=== PATIENT | female | born 1945 | race African-American/Black ===

== ENCOUNTER 2019-11-20 13:57 | Inpatient (IN) | payer MEDICARE ==
[2019-11-20] MEDS ORDERED: Ondansetron ODT 4 MG TAB ONE (14:25)
[2019-11-20] MEDS ORDERED: Morphine 4 MG/ML VIAL ONE ×2 (14:25→15:22)
--- NOTE | 2019-11-20 16:02 | RAD ---
EXAM: RIGHT HIP TWO VIEWS: 11/20/19 HISTORY: Pain, chronic nerve pain and right groin. FINDINGS: Right hip joint arthrosis. With some joint space loss and some osteophytosis as well as enthesophytic changes involving the greater trochanter. Right sacroiliac joint arthrosis. No fracture or dislocati on. IMPRESSION: Arthrosis and degenerative changes without acute fracture or dislocation. POS: [facility]
[2019-11-20 17:52] LABS: #Eosinphils 0.1 thou/uL (0.0-0.7); #Monocytes 0.9 thou/uL (0.11-0.59); #Neutrophils 5.8 thou/uL (1.40-6.50); %Basophils 0.2 % (0.0-1.0); %Eosinophils 0.6 % (0.0-10.0); %Lymphocytes 22.3 % (21.0-51.0); %Monocytes 10.7 % (0.0-10.0); %Neutrophils 66.2 % (42.0-75.0); Hemoglobin 13.1 g/dL (12.0-16.0); Mean Corpuscular HGB CONC 33.1 g/dL (32.0-36.0); Mean Corpuscular Hemoglobin 30.6 pg (27.0-31.0); Mean Corpuscular Volume 92.4 fL (78.0-98.0); Mean Platelet Volume 7.8 fL (7.4-10.4); Platelet Count 206 thou/uL (130-400); RBC Distribution Width 12.5 % (11.5-14.5); White Blood Cell (WBC) Count 8.7 thou/uL (4.8-10.8)
[2019-11-20 18:08] LABS: ALT (SGPT) 25 U/L (8-55); AST (SGOT) 25 U/L (5-34); Albumin 4.2 g/dL (3.4-4.8); Alkaline Phosphatase 71 U/L (40-110); Anion Gap 13 mmol/L (10-20); BUN (Urea Nitrogen) 18 mg/dL (9.8-20.1); Bilirubin, Total 0.5 mg/dL (0.2-1.2); Calc. Creatinine Clearance 0 mL/min (70-130); Calcium 10.9 mg/dL (7.8-10.44); Carbon Dioxide 23 mmol/L (23-31); Chloride 108 mmol/L (98-107); Estimated GFR-MDRD 45; Globulin 3.5 g/dL (2.4-3.5); Glucose 87 mg/dL (83-110); Potassium 4.6 mmol/L (3.5-5.1); Protein, Total 7.7 g/dL (6.0-8.3); Sodium 139 mmol/L (136-145)
[2019-11-20] MEDS ORDERED: Senokot S 8.6-50 MG TAB PO PRN (18:17)
[2019-11-20] MEDS ORDERED: Calcium Carbonate 500 MG ChewTAB PO PRN (18:17)
[2019-11-20] MEDS ORDERED: Morphine IR 10 MG/5 ML UDCUP PO PRN (18:20)
[2019-11-20] MEDS ORDERED: Promethazine 25 MG TAB PO PRN (18:22)
[2019-11-20 19:19] VITALS: BMI 40.3
--- NOTE | 2019-11-20 19:37 | HP ---
PRIMARY CARE PHYSICIAN: JENSEN Coombs in [place]. CHIEF COMPLAINT: Right sciatic pain. HISTORY OF PRESENT ILLNESS: The patient is a 74-year-old female with past medical history significant for chronic sciatica, hypertension, and acid reflux, who presents to the ER for the above complaint. The patient reports having history of sciatica for the past 8 years. The patient has been seeing a shipyard painter apprentice. Her previous shipyard painter apprentice, Dr. King just recently retired and she was referred to Dr. Frye who works for [facility] in [place]. The patient reports that she saw Dr. Frye 3 months ago, received steroid injections, and everything was doing fine. She went again on November 09 and received injections for her sciatica. Her symptoms were stable for several days post injection and then she reports increasing right sciatic pain. She denies any weakness. She denies any recent trauma or falls. She denies any fever. She denies any urinary retention or incontinence. She denies any saddle anesthesia. Because of her increasing pain, she decided to go stay with her granddaughter here in [place], [place]. Her granddaughter reports that she has become more immobile over the past several days and reporting increasing pain so much so that the patient is refusing to get up and walk. She is able to stand, but is scared to walk because of the pain. She called Dr. Frye, who recommended increasing her dose of gabapentin and hydrocodone, which has not relieved her symptoms. The patient also reports a decreased oral intake, stating that she is not had an appetite for several days. For these reasons, the patient called EMS. In the ER, the patient's vital signs are stable, normal pulse, normal heart rate, normal respiratory rate. Rated her pain 10/10. She was given 8 mg of morphine IV push and 1 L of normal saline and her pain decreased to 5/10 on the pain scale. X-ray of the right hip showed degenerative changes and osteoarthritis. No acute fractures or dislocations. Her CMP and her CBC were unremarkable and a urine is pending. PAST MEDICAL HISTORY: 1. Sciatica, chronic. 2. GERD. 3. Hypertension. SURGICAL HISTORY: 1. Cholecystectomy. 2. Hysterectomy. SOCIAL HISTORY: The patient lives with her family in [place]. Currently, she is staying with her granddaughter in [place]. She has no history of smoking, illicit drug use, or alcohol intake. FAMILY HISTORY: Noncontributory to this case. ALLERGIES: PENICILLIN. HOME MEDICATIONS: 1. Meloxicam 7.5 mg p.o. q.a.m. 2. Gabapentin 1800 mg p.o. b.i.d. 3. Hydrocodone 10/325 two tablets p.o. b.i.d. 4. Promethazine 25 mg p.o. b.i.d. p.r.n. nausea and vomiting. REVIEW OF SYSTEMS: All review of systems are negative unless otherwise stated in the HPI. PHYSICAL EXAMINATION: VITAL SIGNS: Temperature 98.4, blood pressure 133/62, heart rate 61, respirations 18, 97% on room air. Pain scale 5/10. CONSTITUTIONAL stable blood pressure, stable heart rate, no acute distress, alert and oriented to person, place and time. HEAD atraumatic, normocephalic. ENT Nares patent bilaterally, oropharynx clear, uvula midline, moist mucous membranes, no oral lesions NECK Supple, trachea midline, no JVD, no cervical tenderness, Full ROM RESPIRATORY/CHEST Respirations even and unlabored. clear to auscultation. no rhonchi, wheezes or rales. CARDIOVASCULAR S1S2. RRR. no murmurs rubs or gallops ABDOMEN Soft, nontender, active BS, no guarding, rigidity or rebound tenderness. Negative rovsing sign, no abdominal bruit ascultated. BACK no central spinous tenderness. No CVAT tenderness. ROM decreased secondary to pain. UPPER EXTREMITIES Full ROM, strength normal, sensation intact, palpable radial pulses LOWER EXTREMITIES Full ROM, strength normal, sensation intact, palpable pedal pulses, patellar and achilles reflexes intact NEURO Alert, oriented to person, place and time. no focal deficits. HSNE of lumbar spine intact. LABORATORY DATA: X-ray of right hip negative for any acute fracture or dislocation. Sodium 139, potassium 4.6, chloride 108, carbon dioxide 23, BUN 18, creatinine 1.18, glucose 87, calcium 10.9, total bilirubin 0.5, AST 25, ALT 25, alkaline phosphatase 71, albumin 4.2. WBCs 8.7, hemoglobin 13.1, hematocrit 39.7, platelets 206. Urine pending. IMPRESSION AND PLAN: 1. Sciatic pain, chronic. We will admit the patient to the medical floor observation status. Expected length of stay less than 2 midnights. The patient reports a history of chronic sciatica over 8 years. Recently started seeing a new shipyard painter apprentice at [place]. She received steroid injections about a week and a half ago with good relief. Over the next several days, her pain increased. On exam, her vital signs are stable. Regular blood pressure. Regular heart rate and afebrile. X-ray was negative for any acute fracture or dislocation. High sensitivity neuro exam of the lumbar spine is intact. No deficits. She has no risk factors for epidural abscess, epidural hematoma, cauda equina or central canal stenosis. The patient takes gabapentin, hydrocodone, meloxicam for pain, and she had recently increased it per her pain specialist. We will start the patient on oral morphine scheduled and IV morphine p.r.n. We will restart her home dose of promethazine and gabapentin. We will hold her home dose of hydrocodone. We will consult Physical Therapy. We will give IV fluids and await urine pending. 2. Gastroesophageal reflux disease. We will start the patient on Protonix. 3. Hypertension. The patient presented with normal blood pressure. The patient is not taking any medications for blood pressure. We will continue to monitor blood pressure. 4. Heparin for deep venous thrombosis prophylaxis. Protonix for gastrointestinal prophylaxis. The patient is a full code. MPOA is Hermes Hawk, #[phone]. 5. Discussed the case with Dr. Clinton. Job ID: [id number] MTDD
[2019-11-20] MEDS: Morphine 4 MG/ML VIAL SLOW IVP PRN (21:20)
[2019-11-20] MEDS: Gabapentin 300 MG CAP PO SCH (21:21)
[2019-11-20] MEDS: Heparin 5,000 UNITS/ML VIAL SC SCH (21:21)
[2019-11-20] MEDS: Sodium Chloride 0.9% 1,000 ML IV SCH (21:29)
[2019-11-21] MEDS: Morphine 4 MG/ML VIAL SLOW IVP PRN ×3 (03:40→22:50)
[2019-11-21 06:44] LABS: #Eosinphils 0.2 thou/uL (0.0-0.7); #Lymphocytes 2.1 thou/uL (1.20-3.40); #Monocytes 0.9 thou/uL (0.11-0.59); #Neutrophils 3.7 thou/uL (1.40-6.50); %Basophils 0.6 % (0.0-1.0); %Eosinophils 2.2 % (0.0-10.0); %Lymphocytes 30.7 % (21.0-51.0); %Monocytes 12.8 % (0.0-10.0); %Neutrophils 53.7 % (42.0-75.0); Mean Corpuscular Hemoglobin 30.9 pg (27.0-31.0); Mean Corpuscular Volume 93.7 fL (78.0-98.0); Mean Platelet Volume 7.1 fL (7.4-10.4); Platelet Count 172 thou/uL (130-400); RBC Distribution Width 12.5 % (11.5-14.5); Red Blood Cell (RBC) Count 3.88 mill/uL (4.20-5.40); White Blood Cell (WBC) Count 6.9 thou/uL (4.8-10.8)
[2019-11-21 07:00] LABS: Anion Gap 10 mmol/L (10-20); BUN (Urea Nitrogen) 16 mg/dL (9.8-20.1); Calc. Creatinine Clearance 95 mL/min (70-130); Calcium 9.7 mg/dL (7.8-10.44); Carbon Dioxide 25 mmol/L (23-31); Chloride 110 mmol/L (98-107); Estimated GFR-MDRD 68; Glucose 85 mg/dL (83-110); Potassium 3.6 mmol/L (3.5-5.1); Sodium 141 mmol/L (136-145)
[2019-11-21] MEDS ORDERED: Meloxicam 7.5 MG TAB PO SCH (09:00)
[2019-11-21] MEDS: Sodium Chloride 0.9% 1,000 ML IV SCH (09:34)
[2019-11-21] MEDS: Gabapentin 300 MG CAP PO SCH ×2 (09:35→21:48)
[2019-11-21] MEDS: Heparin 5,000 UNITS/ML VIAL SC SCH ×2 (09:35→20:28)
[2019-11-21] MEDS ORDERED: Cyclobenzaprine 10 MG TAB PO SCH (11:30)
[2019-11-21] MEDS: Lidocaine 5% Patch TD SCH (12:00)
[2019-11-21] MEDS ORDERED: tiZANidine HCl 4 MG TAB PO SCH (17:00)
--- NOTE | 2019-11-21 17:00 | PDOC.HOSPP ---
- Subjective Encounter Date: 11/21/19 Encounter Time: 11:40 Subjective: The patient states she got a steroid injection on Sunday in [place] by a pain specialist. She states she gets steroid injections every three months for sciatica. THis time her pain seemed to be worst. The patient reports severe pain in right hip radiating to right leg. She has difficulty lifting up the right leg and difficulty walking because of the pain. It hurts with turning. She reports no relief with oral morphine. She does not want IV morphine due to nausea. She has used lidocaine patch in the past, is willing to try it again She reports taking medrol dose pack 60 mg, then 50 mg, then 40 mg before coming here. Did not notice a difference with that - Objective Vital Signs & Weight: Vital Signs (12 hours) Temp Pulse Resp BP Pulse Ox 11/21/19 11:58 98.3 F 76 18 125/74 100 11/21/19 08:00 98.2 F 74 16 143/83 H 100 Weight Weight 265 lb 6.4 oz I&O: 11/20/19 11/21/19 11/22/19 06:59 06:59 06:59 Intake Total 900 Balance 900 Result Diagrams: 11/21/19 06:21 11/21/19 06:21 Hospitalist ROS - Review of Systems Constitutional: denies: fever, chills - Medication Medications: Active Medications Generic Name Dose Route Start Last Admin Trade Name Freq PRN Reason Stop Dose Admin Gabapentin 1,800 mg 11/20/19 21:00 11/21/19 09:35 Neurontin PO 1,800 mg BID NETO Administration Heparin Sodium (Porcine) 5,000 units 11/20/19 21:00 11/21/19 09:35 Heparin SC 5,000 units BID NETO Administration Lidocaine 1 patch 11/21/19 12:00 11/21/19 12:00 Lidoderm 5% Patch TD 1 patch 1200 NETO Administration Morphine Sulfate 4 mg 11/20/19 18:22 11/21/19 09:35 Morphine SLOW IVP 4 mg Q6H PRN Administration Pain Pantoprazole Sodium 40 mg 11/21/19 09:00 11/21/19 09:35 Protonix PO 40 mg DAILY NETO Administration - Exam General Appearance: NAD, awake alert Eye: PERRL, anicteric sclera ENT: normocephalic atraumatic, no oropharyngeal lesions Neck: supple, symmetric, no JVD Heart: RRR, no murmur, no gallops Respiratory: CTAB, no wheezes, no rales Gastrointestinal: soft, non-tender, non-distended Extremities: no cyanosis, no clubbing, no edema Skin: normal turgor, no lesions, no rashes Neurological: cranial nerve grossly intact, normal sensation to touch, no focal deficits, no new deficit Musculoskeletal - other findings: very tender on right ROSA. Diff lifting right leg due to pain Psychiatric: normal affect, normal behavior, A&O x 3, oriented to person Hosp A/P - Plan This is 74 year old female presenting with worsening sciatica pain Right back and leg pain - possibly worsening sciatica versus herniated disc - patient is very tender on ROSA and has + straight leg test. She had steroid injection five days ago. Obtain MRI spine - continue gabapentin 1800 mg bid - pt reports no significant relief with flexeril. Will try tizanodine - continue lidocaine patch - toradol IV 30 mg q6 hours prn, d/c mobic - oxycodone 2.5 mg po q6 hours prn for severe pain. Switch morphine IV to fentanyl IV prn for severe julian n - MRI lumbar spine ordered, unable to be done today
[2019-11-21] MEDS ORDERED: Fentanyl 100 MCG/2 ML VIAL SLOW IVP PRN (17:02)
[2019-11-21] MEDS: Ketorolac Tromethamine 30 MG/ML VIAL IVP PRN (17:23)
--- NOTE | 2019-11-21 20:37 | PDOC.EVN ---
Event Note - Event Note Event Note: Notified by RN regarding concern over significant increase in Gabapentin at admission. Patient normally takes 600 mg PO TID at home (total dose of 1800 mg/ day). On admission, Gabapentin 1800 mg BID was ordered (3,600 mg/day). Per patient she was told it would be increased. I have changed it to 900 mg TID instead for now. Further adjustments, as per Dr. Velasquez.
[2019-11-21] MEDS ORDERED: Gabapentin 300 MG CAP PO SCH (21:00)
[2019-11-21] MEDS: oxyCODONE 5 MG TAB PO PRN (21:47)
[2019-11-21] MEDS: Lidocaine Patch Removal 1 EACH TOP SCH (23:43)
[2019-11-22 05:38] LABS: Hemoglobin 11.6 g/dL (12.0-16.0); Mean Corpuscular HGB CONC 34.4 g/dL (32.0-36.0); Mean Corpuscular Hemoglobin 31.6 pg (27.0-31.0); Mean Corpuscular Volume 91.9 fL (78.0-98.0); Mean Platelet Volume 7.4 fL (7.4-10.4); Platelet Count 178 thou/uL (130-400); RBC Distribution Width 12.5 % (11.5-14.5); Red Blood Cell (RBC) Count 3.67 mill/uL (4.20-5.40); White Blood Cell (WBC) Count 5.5 thou/uL (4.8-10.8)
[2019-11-22 06:00] LABS: Anion Gap 10 mmol/L (10-20); BUN (Urea Nitrogen) 18 mg/dL (9.8-20.1); Calc. Creatinine Clearance 83 mL/min (70-130); Calcium 9.9 mg/dL (7.8-10.44); Carbon Dioxide 25 mmol/L (23-31); Chloride 110 mmol/L (98-107); Estimated GFR-MDRD 59; Glucose 95 mg/dL (83-110); Potassium 3.7 mmol/L (3.5-5.1); Sodium 141 mmol/L (136-145)
[2019-11-22] MEDS: oxyCODONE 5 MG TAB PO PRN (07:08)
[2019-11-22] MEDS: Gabapentin 300 MG CAP PO SCH ×3 (08:44→20:24)
[2019-11-22] MEDS: Heparin 5,000 UNITS/ML VIAL SC SCH ×2 (08:45→20:27)
[2019-11-22] MEDS: Morphine 4 MG/ML VIAL SLOW IVP PRN (08:46)
[2019-11-22] MEDS: Lidocaine 5% Patch TD SCH (11:43)
--- NOTE | 2019-11-22 11:55 | PDOC.HOSPP ---
- Subjective Encounter Date: 11/22/19 (f/u intractable pain) Encounter Time: 11:53 Subjective: Pt now on HD3, admitted for acute on chronic back and sciatic pain s/p recent steroid injection. Pt c/o pain 8/10 in intensity with laying still, 10/10 with any movement. Unable to lay flat for MRI despite 4 mg morphine, PO oxycodone. Last dose of fentanyl and toradol were last night. She denies any n/v/abd pain. She denies any new symptoms. - Objective Vital Signs & Weight: Vital Signs (12 hours) Temp Pulse Resp BP Pulse Ox 11/22/19 11:40 98.2 F 72 18 127/76 98 11/22/19 07:47 98.2 F 74 18 144/84 H 96 11/22/19 03:00 97.8 F 77 18 130/80 98 Weight Weight 265 lb 6.4 oz I&O: 11/21/19 11/22/19 11/23/19 06:59 06:59 06:59 Intake Total 900 840 Balance 900 840 Result Diagrams: 11/22/19 05:15 11/22/19 05:15 Hospitalist ROS - Medication Medications: Active Medications Generic Name Dose Route Start Last Admin Trade Name Freq PRN Reason Stop Dose Admin Gabapentin 900 mg 11/21/19 21:00 11/22/19 08:44 Neurontin PO 900 mg TID [facility] Administration Heparin Sodium (Porcine) 5,000 units 11/20/19 21:00 11/22/19 08:45 Heparin SC 5,000 units BID NETO Administration Ketorolac Tromethamine 30 mg 11/21/19 16:56 11/21/19 17:23 Toradol IVP 11/26/19 16:57 30 mg Q6H PRN Administration Pain Lidocaine 1 patch 11/21/19 12:00 11/22/19 11:43 Lidoderm 5% Patch TD 1 patch 1200 [facility] Administration Miscellaneous Medication 1 each 11/21/19 23:59 11/21/19 23:43 Lidocaine Patch Removal TOP Not Given 1569 [facility] Morphine Sulfate 4 mg 11/20/19 18:22 11/22/19 08:46 Morphine SLOW IVP 4 mg Q6H PRN Administration Pain Oxycodone HCl 2.5 mg 11/21/19 16:57 11/22/19 07:08 Oxycodone Ir PO 2.5 mg Q6H PRN Administration Severe Pain (7-10) Pantoprazole Sodium 40 mg 11/21/19 09:00 11/22/19 08:45 Protonix PO 40 mg DAILY NETO Administration - Exam General Appearance: NAD Heart: RRR, no murmur Respiratory: CTAB, no wheezes, no rales, no ronchi Gastrointestinal: soft, non-tender, non-distended, normal bowel sounds Extremities: no cyanosis, no clubbing, no edema Neurological: no focal deficits Musculoskeletal: normal tone Musculoskeletal - other findings: normal strength with plantar flexion/extension Psychiatric: normal affect Hosp A/P (1) Sciatic leg pain Code(s): M54.30 - SCIATICA, UNSPECIFIED SIDE Status: Acute (2) Back pain Code(s): M54.9 - DORSALGIA, UNSPECIFIED Status: Acute Qualifiers: Back pain laterality: right Sciatica presence: with sciatica Sciatica laterality: sciatica of right side (3) Hypertension Code(s): I10 - ESSENTIAL (PRIMARY) HYPERTENSION Status: Chronic (4) GERD (gastroesophageal reflux disease) Code(s): K21.9 - GASTRO-ESOPHAGEAL REFLUX DISEASE WITHOUT ESOPHAGITIS Status: Chronic - Plan Acute on chronic back and sciatic back pain - uncontrolled despite multiple medications - discussed safely managing pain - avoiding multiple medications that can cause sedation - goal of MRI to determine if pain mgmt consult or NS consult needed - For MRI - fentanyl and toradol - for pain in general - scheduled lidocaine patch, gabapentin. PRN options - robaxin, fentanyl, morphine, oxycodone, toradol Continue monitoring renal function scheduled and prn bowel meds hold home med of aspirin in case surgery/procedure is needed HTN - bp's normal, hold home med dvt prophy - heparin gi prophy - protonix as she is receiving nsaid's code status full reviewed plan of care with pt/nurse, no questions or further needs at end of eval. pt is not safe for discharge to home - pain is not controlled, and underlying pathology causing pain has not been characterized.
[2019-11-22] MEDS: Methocarbamol 500 MG TAB PO PRN (12:56)
[2019-11-22] MEDS: Ketorolac Tromethamine 30 MG/ML VIAL IVP PRN ×2 (15:43→21:59)
[2019-11-22] MEDS: Fentanyl 100 MCG/2 ML VIAL SLOW IVP PRN ×2 (15:44→21:47)
[2019-11-22] MEDS: Docusate 100 MG CAP PO SCH (20:24)
[2019-11-23] MEDS: Fentanyl 100 MCG/2 ML VIAL SLOW IVP PRN ×3 (07:29→20:23)
[2019-11-23] MEDS: Gabapentin 300 MG CAP PO SCH ×3 (09:32→23:01)
[2019-11-23] MEDS: Heparin 5,000 UNITS/ML VIAL SC SCH ×2 (09:32→20:13)
[2019-11-23] MEDS: Docusate 100 MG CAP PO SCH ×2 (09:32→20:13)
[2019-11-23] MEDS: Ketorolac Tromethamine 30 MG/ML VIAL IVP PRN ×2 (09:43→20:25)
[2019-11-23] MEDS: Polyethylene Glycol 3350 17 GM Packet PO SCH (10:00)
[2019-11-23] MEDS: Morphine 4 MG/ML VIAL SLOW IVP PRN (10:54)
[2019-11-23] MEDS: Methocarbamol 500 MG TAB PO PRN (12:01)
[2019-11-23] MEDS: Lidocaine 5% Patch TD SCH (12:05)
--- NOTE | 2019-11-23 12:22 | MRI ---
MRI LUMBAR SPINE WITHOUT CONTRAST: INDICATIONS: Low back pain and sciatica on the right. FINDINGS: The exam is compromised due to motion artifact. The lumbar vertebrae maintain height. Moderate degenerative changes are noted with spurring from all the lumbar vertebrae. Degenerative disk changes are seen throughout. Disk narrowing is most pronounce d at the L3-L4 and L5-S1 levels. No evidence of vertebral body edema. High STIR signal is seen along the posterior margin of the L2 vertebra on the right, extending into the pedicle, most consistent wit h hemangioma. Findings at each disk level are described. There is mild anterolisthesis at L4 L5 and minimal sylvia listhesis at L3-L4. At L1-L2 there is a broad-based disk bulge. Prominent posterior facet and ligamentous hypertrophy is present. These changes result in moderate central canal stenosis. Bilateral foraminal stenosis. At L2-L3 there is a broad-based disk bulge. Prominent facet hypertrophy. Mild central canal stenosis. Bilateral foraminal stenosis. At L3-L4 there is diffuse disk bulge. Prominent facet and ligamentous hypertrophy. Moderate central c anal stenosis. Bilateral foraminal stenosis. At L4-L5 there is anterolisthesis, broad-based disk bulge, facet hypertrophy. Moderate central canal stenosis. Bilateral foraminal stenosis. At L5-S1 there is mild diffuse disk bulge. Facet hypertrophy. No significant central canal stenosis. Mild bilateral foraminal stenosis. IMPRESSION: Degenerative disk changes at all levels with degrees of central canal stenosis, as described above. F oraminal stenosis noted at all levels. POS: [facility]
--- NOTE | 2019-11-23 13:13 | PDOC.HOSPP ---
- Subjective Encounter Date: 11/23/19 (f/u intractable back pain) Encounter Time: 13:10 Subjective: Pt reports she felt good this morning - pain was down to 4/10. Able to use bedside commode and transfer, however had return of severe pain afterwards. - Objective Vital Signs & Weight: Vital Signs (12 hours) Temp Pulse Resp BP Pulse Ox 11/23/19 08:00 94 L 11/23/19 07:24 98.2 F 73 16 141/85 H 94 L 11/23/19 04:00 98.2 F 73 22 H 124/76 96 Weight Weight 265 lb 6.4 oz I&O: 11/22/19 11/23/19 11/24/19 06:59 06:59 06:59 Intake Total 840 Balance 840 Result Diagrams: 11/22/19 05:15 11/22/19 05:15 Radiology Reviewed by me: Yes (MRI l-spine with multiple abnormalities) Hospitalist ROS - Medication Medications: Active Medications Generic Name Dose Route Start Last Admin Trade Name Freq PRN Reason Stop Dose Admin Docusate Sodium 100 mg 11/22/19 21:00 11/23/19 09:32 Colace PO 100 mg BID NETO Administration Fentanyl 50 mcg 11/22/19 11:53 11/23/19 09:37 Sublimaze SLOW IVP 50 mcg Q2H PRN Administration Severe Pain (7-10) Gabapentin 900 mg 11/21/19 21:00 11/23/19 09:32 Neurontin PO 900 mg TID NETO Administration Heparin Sodium (Porcine) 5,000 units 11/20/19 21:00 11/23/19 09:32 Heparin SC 5,000 units BID NETO Administration Ketorolac Tromethamine 30 mg 11/21/19 16:56 11/23/19 09:43 Toradol IVP 11/26/19 16:57 30 mg Q6H PRN Administration Pain Lidocaine 1 patch 11/21/19 12:00 11/23/19 12:05 Lidoderm 5% Patch TD 1 patch 1200 NETO Administration Metoprolol Succinate 50 mg 11/22/19 21:00 11/22/19 20:25 Toprol Xl PO Not Given HS NETO Miscellaneous Medication 1 each 11/21/19 23:59 11/23/19 00:00 Lidocaine Patch Removal TOP 1 each 2359 NETO Administration Morphine Sulfate 4 mg 11/20/19 18:22 11/23/19 10:54 Morphine SLOW IVP 4 mg Q6H PRN Administration Pain Oxycodone HCl 2.5 mg 11/21/19 16:57 11/22/19 07:08 Oxycodone Ir PO 2.5 mg Q6H PRN Administration Severe Pain (7-10) Pantoprazole Sodium 40 mg 11/21/19 09:00 11/23/19 09:32 Protonix PO 40 mg DAILY NETO Administration - Exam General Appearance: NAD Heart: RRR, no murmur Respiratory: CTAB, no wheezes, no rales, no ronchi Gastrointestinal: soft, non-tender, non-distended, normal bowel sounds Neurological: no focal deficits Psychiatric: normal affect Hosp A/P (1) Sciatic leg pain Code(s): M54.30 - SCIATICA, UNSPECIFIED SIDE Status: Acute (2) Back pain Code(s): M54.9 - DORSALGIA, UNSPECIFIED Status: Acute Qualifiers: Back pain laterality: right Sciatica presence: with sciatica Sciatica laterality: sciatica of right side (3) Hypertension Code(s): I10 - ESSENTIAL (PRIMARY) HYPERTENSION Status: Chronic (4) GERD (gastroesophageal reflux disease) Code(s): K21.9 - GASTRO-ESOPHAGEAL REFLUX DISEASE WITHOUT ESOPHAGITIS Status: Chronic - Plan Acute on chronic back and sciatic back pain - multiple abnormalities on MRI including stenosis, disk bulging - consult to Neurosurgery - continue managing pain - change robaxin to scheduled - for pain in general - scheduled lidocaine patch, gabapentin and now robaxin. PRN options - fentanyl, morphine, oxycodone, toradol scheduled and prn bowel meds hold home med of aspirin in case surgery/procedure is needed HTN - bp's normal, hold home med dvt prophy - heparin gi prophy - protonix as she is receiving nsaid's code status full reviewed plan of care with pt/nurse, no questions or further needs at end of eval. pt is not safe for discharge to home given the severity of pain and the need for consultation on options for treatment.
[2019-11-23] MEDS ORDERED: Methocarbamol 500 MG TAB PO SCH (15:00)
[2019-11-23] MEDS: Methocarbamol 500 MG TAB PO SCH (23:02)
[2019-11-23] MEDS: Lidocaine Patch Removal 1 EACH TOP SCH ×2 (23:30)
--- NOTE | 2019-11-24 07:32 | CON ---
DATE OF CONSULTATION: 11/23/2019 HISTORY OF PRESENT ILLNESS: Ms. Mohan is a 74-year-old female with a chief complaint of lower back pain for the past 6 years. She states that she lives in [place] and she came up to visit her granddaughter who goes to school at [employer] . She was visiting her to order a ring and developed severe back pain. States that she had an LTFESI last Sunday. She received her steroid injection from [facility]. Before Sunday, she was walking and driving and everything was great. Now, she tells me she cannot even move to the commode, she is in so much pain. States that her pain is being managed very well. It is about 4/10. The MRI of her L-spine showed moderate canal stenosis, especially at L3-L4. She tells me that her right quadriceps is the only thing that hurts in her lower extremity. PAST SURGICAL HISTORY: Cholecystectomy, hysterectomy. SOCIAL HISTORY: She denies smoking, illicit drug use, or alcohol. FAMILY HISTORY: Noncontributory. ALLERGIES: PENICILLIN. MEDICATIONS: Meloxicam, gabapentin, hydrocodone, promethazine. REVIEW OF SYSTEMS: CONSTITUTIONAL: Denies fever or chills. ENT: Denies change in vision or hearing. CARDIAC: Denies chest pain, shortness of breath, or diaphoresis. PULMONARY: Denies shortness of breath, cough, or hemoptysis. GI: Denies abdominal pain, nausea, vomiting, diarrhea, or change in stool formation and consistency. : Denies trouble with urination, frequency of urination, or bloody urine. SKIN: Denies skin rash, bruising, bleeding, or skin masses. MUSCULOSKELETAL: As per history of present illness. NEUROLOGICAL: As per history of present illness. PSYCHOLOGICAL: As per history of present illness. PHYSICAL EXAMINATION: HEENT: Pupils are equal. Extraocular movements are intact. NECK: Soft, supple. No masses are noted. Range of motion is intact and nonpainful. NEUROLOGICAL: Awake, alert, oriented x3. Memory, attention, fund of knowledge normal. Cranial nerves grossly intact. Upper extremity 5/5 strength in the deltoids, biceps, triceps, wrist extensions, finger extension, finger intrinsics. Sensation equal bilaterally. Reflexes symmetric. Lower extremity; somewhat weaker in her right quadriceps, otherwise, she has good strength in her iliopsoas, hamstrings, anterior tib, EHL, and gastrocnemius. There is no area of dermatomal sensory loss. The reflexes are symmetric. The toes are downgoing. IMAGING STUDIES: MRI of the L-spine, L2-L3, L3-L4, L4-L5, moderate canal stenosis, greatest stenosis at L3-L4. PLAN: I asked Ms. Mohan if she would consider surgery (Laminectomy). At this time and she said would like some time to think about it. We could offer her Pain Management. I will visit her tomorrow to see what her plan is. Job ID: [id number] [facility] HOSPITALCharissa
[2019-11-24] MEDS: Docusate 100 MG CAP PO SCH ×2 (09:05→20:32)
[2019-11-24] MEDS: Gabapentin 300 MG CAP PO SCH ×3 (09:06→20:32)
[2019-11-24] MEDS: Heparin 5,000 UNITS/ML VIAL SC SCH ×2 (09:06→20:33)
[2019-11-24] MEDS: Methocarbamol 500 MG TAB PO SCH ×3 (09:07→20:33)
[2019-11-24] MEDS: Polyethylene Glycol 3350 17 GM Packet PO SCH (09:07)
[2019-11-24] MEDS: Lidocaine 5% Patch TD SCH (12:02)
[2019-11-24] MEDS: Ketorolac Tromethamine 30 MG/ML VIAL IVP PRN (12:08)
[2019-11-24] MEDS ORDERED: Amlodipine 5 MG TAB PO SCH (12:45)
[2019-11-24] MEDS: Fentanyl 100 MCG/2 ML VIAL SLOW IVP PRN ×2 (13:02→18:04)
--- NOTE | 2019-11-24 15:21 | PDOC.HOSPP ---
- Subjective Encounter Date: 11/24/19 (f/u intractable back pain) Encounter Time: 15:18 Subjective: Pt evaluated today and she reports pain is better - she was able to ambulate to restroom, and sit up in a chair. She has increasing pain now. She denies any n /v/abd pain, and denies any other concerns. - Objective Vital Signs & Weight: Vital Signs (12 hours) Temp Pulse Resp BP BP BP Pulse Ox 11/24/19 13:04 72 11/24/19 11:23 98.3 F 72 16 152/93 H 92 L 11/24/19 08:00 95 11/24/19 06:58 98.1 F 72 16 137/90 95 11/24/19 04:47 97.7 F 64 17 141/89 H 97 Weight Weight 265 lb 6.4 oz Result Diagrams: 11/22/19 05:15 11/22/19 05:15 Hospitalist ROS - Medication Medications: Active Medications Generic Name Dose Route Start Last Admin Trade Name Freq PRN Reason Stop Dose Admin Docusate Sodium 100 mg 11/22/19 21:00 11/24/19 09:05 Colace PO 100 mg BID NETO Administration Fentanyl 50 mcg 11/22/19 11:53 11/24/19 13:02 Sublimaze SLOW IVP 50 mcg Q2H PRN Administration Severe Pain (7-10) Gabapentin 900 mg 11/21/19 21:00 11/24/19 14:53 Neurontin PO 900 mg TID NETO Administration Heparin Sodium (Porcine) 5,000 units 11/20/19 21:00 11/24/19 09:06 Heparin SC 5,000 units BID NETO Administration Ketorolac Tromethamine 30 mg 11/21/19 16:56 11/24/19 12:08 Toradol IVP 11/26/19 16:57 30 mg Q6H PRN Administration Pain Lidocaine 1 patch 11/21/19 12:00 11/24/19 12:02 Lidoderm 5% Patch TD 1 patch 1200 NETO Administration Methocarbamol 750 mg 11/23/19 21:00 11/24/19 14:54 Robaxin PO 750 mg TID NETO Administration Metoprolol Succinate 50 mg 11/22/19 21:00 11/23/19 20:14 Toprol Xl PO 50 mg HS NETO Administration Miscellaneous Medication 1 each 11/21/19 23:59 11/23/19 23:30 Lidocaine Patch Removal TOP 1 each 9552 NETO Administration Morphine Sulfate 4 mg 11/20/19 18:22 11/23/19 10:54 Morphine SLOW IVP 4 mg Q6H PRN Administration Pain Oxycodone HCl 2.5 mg 11/21/19 16:57 11/22/19 07:08 Oxycodone Ir PO 2.5 mg Q6H PRN Administration Severe Pain (7-10) Polyethylene Glycol 17 gm 11/23/19 09:00 11/24/19 09:07 Miralax PO 17 gm DAILY NETO Administration - Exam General Appearance: NAD Heart: RRR, no murmur Respiratory: CTAB, no wheezes, no rales, no ronchi Gastrointestinal: soft, non-tender, non-distended, normal bowel sounds Extremities: no cyanosis, no clubbing, no edema Psychiatric: normal affect Hosp A/P (1) Sciatic leg pain Code(s): M54.30 - SCIATICA, UNSPECIFIED SIDE Status: Acute (2) Back pain Code(s): M54.9 - DORSALGIA, UNSPECIFIED Status: Acute Qualifiers: Back pain laterality: right Sciatica presence: with sciatica Sciatica laterality: sciatica of right side (3) Hypertension Code(s): I10 - ESSENTIAL (PRIMARY) HYPERTENSION Status: Chronic (4) GERD (gastroesophageal reflux disease) Code(s): K21.9 - GASTRO-ESOPHAGEAL REFLUX DISEASE WITHOUT ESOPHAGITIS Status: Chronic - Plan Acute on chronic back and sciatic back pain - appreciate NS evaluation - by report of patient, Dr. White to meet wiht her today. Pt is not interested in surgery, however she has worsening pain despite recent outpatient injection. If there are no surgical options, or she declines, will requiest consult of Pain medicine. - continue pt - consider IP rehab continue scheduled and prn bowel meds hold home med of aspirin in case surgery/procedure is needed HTN - bp's slightly elevated. we are using nsaid's, will change to amlodipine for now and continue her beta-denise. When no longer on NSAID's, return back to home combo ARB/HCTZ. dvt prophy - heparin gi prophy - not indicated - taking PO code status full reviewed plan of care with pt/nurse, no questions or further needs at end of eval. pt is not safe for discharge to home given the severity of pain and the need for further discussion with specialist. Addendum - d/w Dr. White this afternoon - he reports that if surgery is desired, it will not be during this hospitalization. Pt will need physical therapy, pain management and follow up in a Neurosurgery clinic for discussion and planning of surgery. Consult placed this evening for Pain managment. Will also consult OT for evaluation, and consider SNF vs IP rehab.
[2019-11-25] MEDS: Ketorolac Tromethamine 30 MG/ML VIAL IVP PRN ×2 (00:23→08:19)
[2019-11-25] MEDS: Fentanyl 100 MCG/2 ML VIAL SLOW IVP PRN ×2 (00:24→11:07)
[2019-11-25] MEDS: Lidocaine Patch Removal 1 EACH TOP SCH ×2 (01:07→22:50)
[2019-11-25 06:14] LABS: Anion Gap 11 mmol/L (10-20); BUN (Urea Nitrogen) 20 mg/dL (9.8-20.1); Calc. Creatinine Clearance 79 mL/min (70-130); Calcium 10.5 mg/dL (7.8-10.44); Carbon Dioxide 22 mmol/L (23-31); Chloride 110 mmol/L (98-107); Estimated GFR-MDRD 56; Glucose 98 mg/dL (83-110); Potassium 3.9 mmol/L (3.5-5.1); Sodium 139 mmol/L (136-145)
[2019-11-25] MEDS: Docusate 100 MG CAP PO SCH ×2 (08:16→20:23)
[2019-11-25] MEDS: Gabapentin 300 MG CAP PO SCH ×3 (08:16→20:23)
[2019-11-25] MEDS: Methocarbamol 500 MG TAB PO SCH ×3 (08:17→20:23)
[2019-11-25] MEDS: Amlodipine 5 MG TAB PO SCH (08:17)
[2019-11-25] MEDS: Heparin 5,000 UNITS/ML VIAL SC SCH (08:18)
[2019-11-25] MEDS: Polyethylene Glycol 3350 17 GM Packet PO SCH (08:20)
[2019-11-25] MEDS ORDERED: HYDROcodone/Acetaminophen 10/325 mg Tablet PO PRN ×2 (10:55→12:26)
[2019-11-25] MEDS ORDERED: traMADol HCl 50 MG TAB PO PRN (10:57)
--- NOTE | 2019-11-25 11:18 | PDOC.HOSPP ---
- Subjective Encounter Date: 11/25/19 (f/u intractable pain) Encounter Time: 11:15 Subjective: 74 y/o female admitted for intractable back pain. Pt with abnormal MRI - multiple abnormalities through lumbar spine. She was evaluated by Neurosurgery and any surgical options will need evaluation in the outpatient setting. Pt is frustrated today - states she feels like she shouldnt have pain. She has been moving more with PT, taking a shower, using the restroom. She denies any cp /sob/n/v/abd pain. - Objective Vital Signs & Weight: Vital Signs (12 hours) Temp Pulse Resp BP BP Pulse Ox 11/25/19 08:17 73 133/88 11/25/19 07:02 98.2 F 73 16 133/88 98 11/25/19 03:39 98.5 F 72 20 143/84 H 98 11/25/19 01:00 98.5 F 70 20 149/84 H 96 Weight Weight 265 lb 6.4 oz I&O: 11/24/19 11/25/19 11/26/19 06:59 06:59 06:59 Intake Total 880 Balance 880 Result Diagrams: 11/25/19 13:10 11/25/19 05:39 Hospitalist ROS - Medication Medications: Active Medications Generic Name Dose Route Start Last Admin Trade Name Freq PRN Reason Stop Dose Admin Amlodipine Besylate 2.5 mg 11/25/19 09:00 11/25/19 08:17 Norvasc PO 2.5 mg DAILY NETO Administration Docusate Sodium 100 mg 11/22/19 21:00 11/25/19 08:16 Colace PO 100 mg BID NETO Administration Fentanyl 50 mcg 11/22/19 11:53 11/25/19 11:07 Sublimaze SLOW IVP 50 mcg Q2H PRN Administration Severe Pain (7-10) Gabapentin 900 mg 11/21/19 21:00 11/25/19 08:16 Neurontin PO 900 mg TID NETO Administration Heparin Sodium (Porcine) 5,000 units 11/20/19 21:00 11/25/19 08:18 Heparin SC 5,000 units BID NETO Administration Lidocaine 1 patch 11/21/19 12:00 11/24/19 12:02 Lidoderm 5% Patch TD 1 patch 1200 NETO Administration Methocarbamol 750 mg 11/23/19 21:00 11/25/19 08:17 Robaxin PO 750 mg TID NETO Administration Metoprolol Succinate 50 mg 11/22/19 21:00 11/24/19 20:33 Toprol Xl PO 50 mg HS NETO Administration Miscellaneous Medication 1 each 11/21/19 23:59 11/25/19 01:07 Lidocaine Patch Removal TOP 1 each 2359 NETO Administration Morphine Sulfate 4 mg 11/20/19 18:22 11/23/19 10:54 Morphine SLOW IVP 4 mg Q6H PRN Administration Pain Topiramate 200 Mg 0 each 11/21/19 21:00 11/24/19 20:30 Tab PO 1 each HS NETO Administration Polyethylene Glycol 17 gm 11/23/19 09:00 11/25/19 08:20 Miralax PO 17 gm DAILY NETO Administration - Exam General Appearance: NAD Heart: RRR, no murmur Respiratory: CTAB, no wheezes, no rales, no ronchi Gastrointestinal: soft, non-tender, non-distended, normal bowel sounds Extremities: no cyanosis, no clubbing, no edema Psychiatric - other findings: affect blunted Hosp A/P (1) Sciatic leg pain Code(s): M54.30 - SCIATICA, UNSPECIFIED SIDE Status: Acute (2) Back pain Code(s): M54.9 - DORSALGIA, UNSPECIFIED Status: Acute Qualifiers: Back pain laterality: right Sciatica presence: with sciatica Sciatica laterality: sciatica of right side (3) Hypertension Code(s): I10 - ESSENTIAL (PRIMARY) HYPERTENSION Status: Chronic Qualifiers: Hypertension type: essential hypertension Qualified Code(s): I10 - Essential (primary) hypertension (4) GERD (gastroesophageal reflux disease) Code(s): K21.9 - GASTRO-ESOPHAGEAL REFLUX DISEASE WITHOUT ESOPHAGITIS Status: Resolved - Plan Acute on chronic back and sciatic back pain - - Pain management consult today - Add more options for oral tx - scheduled and prn - pt ready for IP rehab vs SNF when no longer requiring IV pain meds - will need outpt f/u with Neurosurgery to explore surgical options in the future continue scheduled and prn bowel meds resume home low dose aspirin HTN - bp's controlled. Will plan to switch back to home med on discharge as renal function has been stable dvt prophy - heparin gi prophy - not indicated - taking PO code status full reviewed plan of care with pt/nurse, no questions or further needs at end of eval. Anticipate ready for transition of care in the next 1-2 days. Addendum - d/w Dr. Bar - he is narrowing the medications, ordering a dose of IV steroids and will re-evaluate tomorrow. HE recommends scd's for dvt prophy.
[2019-11-25] MEDS ORDERED: methylPREDNISolone Sod Succ/PF 125 MG/2 ML VIAL IVP SCH (12:30)
[2019-11-25] MEDS: Lidocaine 5% Patch TD SCH (13:18)
[2019-11-25 13:20] LABS: #Eosinphils 0.2 thou/uL (0.0-0.7); #Lymphocytes 1.3 thou/uL (1.20-3.40); #Monocytes 0.6 thou/uL (0.11-0.59); #Neutrophils 2.7 thou/uL (1.40-6.50); %Lymphocytes 27.4 % (21.0-51.0); %Monocytes 11.7 % (0.0-10.0); Hemoglobin 12.8 g/dL (12.0-16.0); Mean Corpuscular HGB CONC 33.1 g/dL (32.0-36.0); Mean Corpuscular Hemoglobin 30.6 pg (27.0-31.0); Mean Corpuscular Volume 92.4 fL (78.0-98.0); Mean Platelet Volume 7.6 fL (7.4-10.4); Platelet Count 198 thou/uL (130-400); RBC Distribution Width 12.7 % (11.5-14.5); Red Blood Cell (RBC) Count 4.19 mill/uL (4.20-5.40); White Blood Cell (WBC) Count 4.9 thou/uL (4.8-10.8)
[2019-11-25] MEDS: HYDROcodone/Acetaminophen 10/325 mg Tablet PO PRN (13:21)
--- NOTE | 2019-11-25 14:52 | CON ---
DATE OF CONSULTATION: 11/25/2019 REASON FOR CONSULTATION: Right lower extremity pain. HISTORY OF PRESENT ILLNESS: The patient is a 74-year-old female, who presented on 11/20/2019 with severe lower back pain radiating to the right lower extremity. She states that she has had this right lower extremity pain for years and was being treated by a paint dipper in [place]. She states that her regular paint dipper, Dr. King, retired in April of 2019 and was referred to Dr. Frye, who works for [facility] in [place]. Dr. Frye performed an epidural steroid injection approximately 3 months ago, which led to significant relief. Her pain then returned and she was scheduled for a repeat epidural steroid injection on 11/11/2019. From what the patient describes, the bandage was in the center of the spine at the lumbar area. Therefore, I assume an interlaminar epidural steroid injection was performed. The patient does say that she was under anesthesia for the injection and does say that the injection was performed for her right lower extremity radiculitis. This is in a right L3 distribution. Therefore, I believe Dr. Frye probably performed a right L2-L3 interlaminar epidural steroid injection to target the L3 nerve root in the lateral recess. I do not have exact records for this though. She says her symptoms are stable for several days and then she had an increase in the right-sided lower extremity pain. This became severe around 11/20/2019. She was visiting her granddaughter in [place] and was taken to our ER and subsequently admitted. The patient currently says that her pain has gotten slightly better. She can now get up out of bed and use the bedside commode. But, after standing for a very short period of time, she has increased right lower extremity pain and she has to lay back down. The pain is described as burning and numb. The patient describes the pain as going up to 10/10 at times. The pain radiates from the right hip to the medial thigh and down to the knee. Her home medication regimen includes [place] 10/325 one p.o. b.i.d. p.r.n. pain. She had to increase this recently due to the increase in pain. She had called her pain doctor before she came in and she was prescribed a Medrol Dosepak and she only finished two days worth of this. She says her pain did decrease, however, continues to be problematic. PAST SURGICAL HISTORY: Cholecystectomy and hysterectomy. SOCIAL HISTORY: Denies smoking, illicit drug use, or alcohol use. She does live at home. FAMILY HISTORY: Noncontributory. ALLERGIES: PENICILLIN. MEDICATIONS: Home medications include; 1. Meloxicam. 2. Gabapentin. 3. Hydrocodone 10/325 one p.o. b.i.d. p.r.n. pain. 4. Promethazine. REVIEW OF SYSTEMS: GENERAL: Denies fever, chills, or night sweats. HEENT: Denies changes in vision, hearing, or nasal discharge. CARDIAC: Denies chest pain, shortness of breath, or diaphoresis. PULMONARY: Denies shortness of breath, cough, or hemoptysis. GI: Denies abdominal pain, nausea, vomiting, diarrhea, or constipation. : Denies trouble with urination, frequency, or blood in urine. SKIN: No rashes. MUSCULOSKELETAL: As in HPI. NEUROLOGIC: Does admit some weakness in the right lower extremity. Denies seizures, headache, or loss of consciousness. PSYCH: Denies anxiety, depression, or kasey. PHYSICAL EXAMINATION: VITAL SIGNS: This morning were a temperature of 98.2, blood pressure 133/88, pulse is 73, O2 saturation 98 on room air. These vital signs have been fairly consistent since her stay. HEENT: Pupils are equally round and reactive to light and accommodation. NECK: Soft, supple. No masses. Range of motion intact. CHEST: Symmetric, nonlabored respirations. ABDOMEN: Soft, nontender, nondistended. MUSCULOSKELETAL: 5/5 strength in bilateral upper extremities, 5/5 strength in bilateral lower extremities except for 4/5 strength in the right hip flexor. Reflexes are 2+ in the bilateral patella and bilateral Achilles. There is tenderness to palpation in the right lower back. Pain with extension and pain with flexion of the lower back. NEUROLOGIC: Sensation is intact. Reflexes as mentioned above. LABORATORY DATA: There have been three CBCs since she was admitted on 11/20/2019. Last one was done on 11/22/2019, white count was normal, borderline anemia with hemoglobin of 11.62 three days ago, platelet count was adequate at 178. Chemistries, most recent sodium 139, potassium 3.9, chloride 110, carbon dioxide 22, BUN 20, creatinine 1.15, calcium level 10.5. Liver enzymes were good on day of admission. MRI of the L-spine performed on 11/23/2019, reveals multilevel degenerative disk disease. There is moderate canal stenosis at multiple levels including L1-L2, L3-L4 where it worst, and bilateral lateral recess stenosis at L4-L5. Neuroforaminal stenosis bilaterally at L2-L3 and severe on the right at L3-L4. There is a hyperintensity in the STIR images at the vertebral body of L2, which extends into the right L2 pedicle. There is noted in the axial T2 images at L2-L3 in the lateral recess, which was seen in image 19 of 47, there is a small hyperintensity in the lateral recess, which may signify epidural fat or fluid. X-ray of the hip on the right side, arthrosis and degenerative changes, no dislocation or fracture. ASSESSMENT: Lumbar radiculopathy. The patient has had a right L3 radiculopathy, which is chronic in nature; however, she has had a severe exacerbation of this. This was done after her most recent epidural steroid injection. The patient did have this epidural steroid injection performed while she was asleep, which puts the patient at increased risk for possible nerve root irritation as the patient cannot tell you if there is pain with a transient increase of pressure in the epidural space from the fluid that is pushed in with the steroids. Therefore, this may have caused an agitation or irritation of her chronic pain. However, given that the Pain Management physician went at L2-L3 at the right lateral recess and there happens to be what looks like an increase in the hypersensitivity of the STIR images at L2-L3 vertebral body and pedicle, I am concerned for a possible infectious process. This is most likely a hemangioma; however, given the location of the epidural steroid injection, I believe it will be prudent to get a CRP and ESR to rule out osteomyelitis. Therefore, I will order a CRP and ESR. I will also order a new CBC. Once this is ruled down, I believe it is safe to say that this is a severe exacerbation of her chronic pain. I will add Solu-Medrol 80 mg IV x1 and re-evaluate the patient tomorrow to see if this helps with her pain. If it helps, we may be able to handle this as an outpatient. We will [place] [id number] one p.o. q.6 hours p.r.n. pain. Discontinue the fentanyl. Continue morphine 4 mg IV q.6 hours p.r.n. severe pain. Continue gabapentin and muscle relaxers and discontinue her tramadol. For deep venous thrombosis prophylaxis, I suggest SCDs and up out of bed to chair. Also, we would recommend evaluation from PT and OT. We will continue to monitor. Job ID: [id number]
[2019-11-25] MEDS: Morphine 4 MG/ML VIAL SLOW IVP PRN (16:06)
[2019-11-25] MEDS: Aspirin 81 mg Enteric Coated Tablet PO SCH (20:20)
[2019-11-25] MEDS: Meloxicam 7.5 MG TAB PO SCH (20:23)
[2019-11-26] MEDS: Morphine 4 MG/ML VIAL SLOW IVP PRN ×3 (00:05→19:54)
--- NOTE | 2019-11-26 08:59 | PDOC.HOSPP ---
- Subjective Encounter Date: 11/26/19 (f/u intractable pain) Encounter Time: 08:57 Subjective: 74 y/o female admitted for acute on chronic back and leg pain. Pt with multiple abnormalities on MRI. Neurosurgery eval - no indication for surgery now - needs outpatient f/u. Pain management consult - steroids initiated yesterday. Pt reports feeling better today, moving better. She is sitting up and states the pain is less intense. She denies any new sx. - Objective Vital Signs & Weight: Vital Signs (12 hours) Temp Pulse Resp BP Pulse Ox 11/26/19 07:05 98.1 F 63 18 109/66 97 Weight Weight 265 lb 6.4 oz I&O: 11/25/19 11/26/19 11/27/19 06:59 06:59 06:59 Intake Total 880 530 Balance 880 530 Result Diagrams: 11/25/19 13:10 11/25/19 05:39 Hospitalist ROS - Medication Medications: Active Medications Generic Name Dose Route Start Last Admin Trade Name Freq PRN Reason Stop Dose Admin Hydrocodone Bitart/Acetaminophen 2 tab 11/25/19 12:26 11/25/19 13:21 [place] 10/325 PO 2 tab Q6H PRN Administration Severe Pain (7-10) Amlodipine Besylate 2.5 mg 11/25/19 09:00 11/25/19 08:17 Norvasc PO 2.5 mg DAILY NETO Administration Aspirin 81 mg 11/25/19 21:00 11/25/19 20:20 Ecotrin PO 81 mg HS NETO Administration Docusate Sodium 100 mg 11/22/19 21:00 11/25/19 20:23 Colace PO 100 mg BID NETO Administration Gabapentin 900 mg 11/21/19 21:00 11/25/19 20:23 Neurontin PO 900 mg TID NETO Administration Lidocaine 1 patch 11/21/19 12:00 11/25/19 13:18 Lidoderm 5% Patch TD 1 patch 1200 NETO Administration Meloxicam 7.5 mg 11/25/19 21:00 11/25/19 20:23 Mobic PO 7.5 mg HS NETO Administration Methocarbamol 750 mg 11/23/19 21:00 11/25/19 20:23 Robaxin PO 750 mg TID NETO Administration Metoprolol Succinate 50 mg 11/22/19 21:00 11/25/19 20:24 Toprol Xl PO 50 mg HS NETO Administration Miscellaneous Medication 1 each 11/21/19 23:59 11/25/19 22:50 Lidocaine Patch Removal TOP Not Given 3790 NETO Morphine Sulfate 4 mg 11/25/19 12:28 11/26/19 00:05 Morphine SLOW IVP 4 mg Q6H PRN Administration SEVERE BREAKTHRU PAIN Topiramate 200 Mg 0 each 11/21/19 21:00 11/25/19 20:24 Tab PO 1 each HS NETO Administration Polyethylene Glycol 17 gm 11/23/19 09:00 11/25/19 08:20 Miralax PO 17 gm DAILY NETO Administration - Exam General Appearance: NAD Heart: RRR, no murmur Respiratory: CTAB, no wheezes Gastrointestinal: soft, non-tender, non-distended, normal bowel sounds Extremities: no cyanosis, no clubbing, no edema Psychiatric: normal affect Hosp A/P (1) Sciatic leg pain Code(s): M54.30 - SCIATICA, UNSPECIFIED SIDE Status: Acute (2) Back pain Code(s): M54.9 - DORSALGIA, UNSPECIFIED Status: Acute Qualifiers: Back pain laterality: right Sciatica presence: with sciatica Sciatica laterality: sciatica of right side (3) Hypertension Code(s): I10 - ESSENTIAL (PRIMARY) HYPERTENSION Status: Chronic Qualifiers: Hypertension type: essential hypertension Qualified Code(s): I10 - Essential (primary) hypertension (4) GERD (gastroesophageal reflux disease) Code(s): K21.9 - GASTRO-ESOPHAGEAL REFLUX DISEASE WITHOUT ESOPHAGITIS Status: Resolved - Plan Acute on chronic back and sciatic back pain - - appreciate Pain management consult yesterday - will need outpt f/u with Neurosurgery to explore surgical options in the future - PT/OT and consideration of home vs rehab continue scheduled and prn bowel meds continue current home meds as ordered dvt prophy - scds gi prophy - not indicated - taking PO code status full reviewed plan of care with pt/nurse, no questions or further needs at end of eval. Anticipate ready for transition of care in the next day. d/w Dr. Bar this afternoon - medrol dose pack, consult Ortho for evaluation of hip, and rehab encouraged. Case management/Raequel aware.
[2019-11-26] MEDS ORDERED: Enoxaparin Sodium 40 MG/0.4 ML SYRINGE SC SCH (09:00)
[2019-11-26] MEDS: Amlodipine 5 MG TAB PO SCH (09:26)
[2019-11-26] MEDS: Docusate 100 MG CAP PO SCH ×2 (09:27→19:49)
[2019-11-26] MEDS: Gabapentin 300 MG CAP PO SCH ×3 (09:28→19:49)
[2019-11-26] MEDS: Methocarbamol 500 MG TAB PO SCH ×3 (09:28→19:50)
[2019-11-26] MEDS: Polyethylene Glycol 3350 17 GM Packet PO SCH (09:37)
[2019-11-26] MEDS: Lidocaine 5% Patch TD SCH (11:56)
[2019-11-26] MEDS ORDERED: methylPREDNISolone 4 mg Tablet PO SCH (12:30)
[2019-11-26] MEDS: methylPREDNISolone 4 mg Tablet PO SCH ×3 (12:45→19:51)
[2019-11-26] MEDS: HYDROcodone/Acetaminophen 10/325 mg Tablet PO PRN (15:03)
--- NOTE | 2019-11-26 18:03 | PRG ---
DATE OF SERVICE: 11/26/2019 SUBJECTIVE: The patient was seen and evaluated at 12 o'clock today. She notes that she woke up with no pain and was able to get out of bed in to a chair, go to the bathroom and walk with no pain for approximately 3 hours. After about 3 hours, her pain returned and she asked for hydrocodone to help ease the pain. Currently, she is lying in bed. The pain is burning and aching, and is in the same distribution as yesterday along the right L3 nerve root. The pain is described as about a 7/10 currently; however, in the morning, it was a 0/10. The patient denies any fever, chills, shortness of breath, chest pain, dyspnea on exertion overnight. OBJECTIVE: VITAL SIGNS: This morning, heart rate of 63, blood pressure 109/66, respirations 18, O2 saturation 97% on room air and a temperature of 98.1 Fahrenheit. GENERAL: Alert and oriented x4. No acute distress. CHEST: Symmetric. Nonlabored respirations. ABDOMEN: Soft, nontender, nondistended. MUSCULOSKELETAL: Unchanged exam. 5/5 strength in bilateral upper and lower extremities, except for 4/5 in the right hip flexor. Reflexes are 2+ bilateral patella and bilateral Achilles. Tenderness to palpation in the right lower back. Pain with extension and pain with flexion of the lower back. NEUROLOGICAL: She is intact. LABORATORY DATA: New labs; CBC yesterday afternoon is grossly within normal limits. CRP is 0.52, which is just slightly above normal. ESR is 18. ASSESSMENT AND PLAN: 1. Lumbar radiculopathy. We are going to start the patient on a Medrol Dosepak. This should help decrease the inflammation of the nerve root even more. Continue Wirt and morphine for breakthrough medicine. She likely would benefit from rehab for few days to get her strength back, so that she can go home without bouncing back. 2. Right groin pain and hip pain. After speaking with Dr. White, Neurosurgery, I believe it would be of benefit to have Orthopedic Surgery evaluate the patient for possible hip origin to her pain. We will be signing off as far as Pain Management is concerned. Please re-consult, if you find it necessary. Job ID: [id number]
[2019-11-26] MEDS: Aspirin 81 mg Enteric Coated Tablet PO SCH (19:49)
[2019-11-26] MEDS: Meloxicam 7.5 MG TAB PO SCH (19:50)
[2019-11-26] MEDS: Lidocaine Patch Removal 1 EACH TOP SCH (22:44)
[2019-11-27 06:55] LABS: Anion Gap 11 mmol/L (10-20); BUN (Urea Nitrogen) 24 mg/dL (9.8-20.1); Calc. Creatinine Clearance 75 mL/min (70-130); Calcium 10.5 mg/dL (7.8-10.44); Carbon Dioxide 26 mmol/L (23-31); Chloride 108 mmol/L (98-107); Estimated GFR-MDRD 52; Glucose 112 mg/dL (83-110); Potassium 4.7 mmol/L (3.5-5.1); Sodium 140 mmol/L (136-145)
[2019-11-27] MEDS: Gabapentin 300 MG CAP PO SCH ×2 (08:27→14:25)
[2019-11-27] MEDS: methylPREDNISolone 4 mg Tablet PO SCH ×2 (08:30→12:13)
[2019-11-27] MEDS: Polyethylene Glycol 3350 17 GM Packet PO SCH (08:31)
[2019-11-27 08:32] VITALS: BP 126/78; TEMP 97.8
[2019-11-27] MEDS: Methocarbamol 500 MG TAB PO SCH ×2 (08:35→14:27)
[2019-11-27] MEDS: Amlodipine 5 MG TAB PO SCH (08:35)
[2019-11-27] MEDS: Docusate 100 MG CAP PO SCH (08:35)
--- NOTE | 2019-11-27 09:10 | PDOC.HOSPP ---
- Subjective Encounter Date: 11/27/19 Encounter Time: 11:30 Subjective: Patient had no pain on awakening, took shower. Then pain returned, significant. Still better than on admit. Patient agreeable to rehab. - Objective Vital Signs & Weight: Vital Signs (12 hours) Temp Pulse Resp BP Pulse Ox 11/27/19 08:35 65 11/27/19 08:00 97.8 F 65 20 126/78 96 Weight Weight 265 lb 6.4 oz I&O: 11/26/19 11/27/19 11/28/19 06:59 06:59 06:59 Intake Total 530 960 Balance 530 960 Result Diagrams: 11/25/19 13:10 11/27/19 06:13 Hospitalist ROS - Review of Systems Constitutional: denies: fever, chills Respiratory: denies: cough, shortness of breath Cardiovascular: denies: chest pain, palpitations Gastrointestinal: reports: abdominal pain (burning in VIC region, her typical GERD symptoms, often takes PPI at home but wasn't on her home med list). denies : nausea, vomiting Musculoskeletal: reports: back pain, leg pain - Medication Medications: Active Medications Generic Name Dose Route Start Last Admin Trade Name Freq PRN Reason Stop Dose Admin Hydrocodone Bitart/Acetaminophen 1 tab 11/25/19 12:26 11/26/19 21:17 [place] 10/325 PO 1 tab Q6H PRN Administration Moderate Pain (4-6) Hydrocodone Bitart/Acetaminophen 2 tab 11/25/19 12:26 11/26/19 15:03 [place] 10/325 PO 2 tab Q6H PRN Administration Severe Pain (7-10) Amlodipine Besylate 2.5 mg 11/25/19 09:00 11/27/19 08:35 Norvasc PO 2.5 mg DAILY NETO Administration Aspirin 81 mg 11/25/19 21:00 11/26/19 19:49 Ecotrin PO 81 mg HS NETO Administration Docusate Sodium 100 mg 11/22/19 21:00 11/27/19 08:35 Colace PO 100 mg BID NETO Administration Gabapentin 900 mg 11/21/19 21:00 11/27/19 08:27 Neurontin PO 900 mg TID NETO Administration Lidocaine 1 patch 11/21/19 12:00 11/26/19 11:56 Lidoderm 5% Patch TD 1 patch 1200 NETO Administration Meloxicam 7.5 mg 11/25/19 21:00 11/26/19 19:50 Mobic PO 7.5 mg HS NETO Administration Methocarbamol 750 mg 11/23/19 21:00 11/27/19 08:35 Robaxin PO 750 mg TID NETO Administration Methylprednisolone 4 mg 11/27/19 08:00 11/27/19 08:30 Medrol PO 11/27/19 18:01 4 mg 0800,1300,1800 NETO Administration Metoprolol Succinate 50 mg 11/22/19 21:00 11/26/19 19:54 Toprol Xl PO 50 mg HS NETO Administration Miscellaneous Medication 1 each 11/21/19 23:59 11/26/19 22:44 Lidocaine Patch Removal TOP Not Given [facility] Morphine Sulfate 4 mg 11/25/19 12:28 11/26/19 19:54 Morphine SLOW IVP 4 mg Q6H PRN Administration SEVERE BREAKTHRU PAIN Topiramate 200 Mg 0 each 11/21/19 21:00 11/26/19 19:51 Tab PO 1 each HS NETO Administration Polyethylene Glycol 17 gm 11/23/19 09:00 11/27/19 08:31 Miralax PO 17 gm DAILY NETO Administration - Exam General Appearance: NAD, awake alert ENT: moist mucosa Heart: RRR, no murmur, no gallops, no rubs Respiratory: CTAB, no wheezes, no rales, no ronchi Gastrointestinal: soft, non-tender, non-distended, normal bowel sounds Psychiatric: normal affect, normal behavior, A&O x 3 Hosp A/P (1) Lumbar radiculopathy, acute Code(s): M54.16 - RADICULOPATHY, LUMBAR REGION Status: Acute (2) Right hip pain Code(s): M25.551 - PAIN IN RIGHT HIP Status: Acute (3) Back pain Code(s): M54.9 - DORSALGIA, UNSPECIFIED Status: Acute Qualifiers: Back pain laterality: right Sciatica presence: with sciatica Sciatica laterality: sciatica of right side (4) Hypertension Code(s): I10 - ESSENTIAL (PRIMARY) HYPERTENSION Status: Chronic Qualifiers: Hypertension type: essential hypertension Qualified Code(s): I10 - Essential (primary) hypertension (5) GERD (gastroesophageal reflux disease) Code(s): K21.9 - GASTRO-ESOPHAGEAL REFLUX DISEASE WITHOUT ESOPHAGITIS Status: Resolved - Plan Restart PPI for GERD symptoms on steroids Ortho states hip could be contributing but likely most from back, outpatient f/ u all that is needed d/c to rehab
--- NOTE | 2019-11-27 09:44 | CON ---
DATE OF CONSULTATION: 11/27/2019 REASON FOR CONSULT: Right hip pain. HISTORY OF PRESENT ILLNESS: This is a 74-year-old female, who was in town with her granddaughter in order to order her [employer] Ring. She states that she came down with sudden right lower back pain, which caused her the inability to stand or walk. It then worsened and she was unable to get out of bed. Of note, she does have a history of lumbar radiculopathy, for which she sees [facility] in [place], [place]. She does live in [place]. She was last seen on November 09 for injections for sciatica. The patient is currently in our facility and reports that she has had an MRI of her lumbar spine. Since she has been admitted, she has received steroids both in IV form as well as p.o. form. She states that she is much improved since receiving steroids. She currently describes pain in her right low back as well as in her right thigh that appears to start in the groin and travel downward to the knee along the medial aspect of the right leg. This does not cross the knee. She has no increase in pain with ambulation at this time. PAST MEDICAL HISTORY: Significant for: 1. Chronic sciatica. 2. GERD. 3. Hypertension. PAST SURGICAL HISTORY: 1. Right total knee arthroplasty in 2002. 2. Right shoulder surgery of unknown origin. 3. Cholecystectomy. 4. Hysterectomy. SOCIAL HISTORY: The patient lives with her family in [place]. Currently, she is staying with her granddaughter in [place]. No history of tobacco, alcohol, or illicit drug use. FAMILY HISTORY: Reviewed and noncontributory. ALLERGIES: PENICILLIN. REVIEW OF SYSTEMS: A 10-point review of systems was conducted and otherwise negative except for stated above. PHYSICAL EXAMINATION: VITAL SIGNS: Shows current vital signs of temperature of 97.9, pulse of 70, respiratory rate of 18, O2 saturation 97 on room air, and blood pressure of 113/74. GENERAL: The patient is awake and alert. She is comfortable appearing. She is in no apparent distress. She is pleasant and cooperative with the exam today. She is sitting at the bedside. HEENT: Head is normocephalic and atraumatic. NECK: Supple. Trachea midline. Breathing nonlabored. EXTREMITIES: Evaluation of her right lower extremity while seated shows that she is swinging her right lower extremity about without any discomfort elicited. I am able to passively range her right hip, including straight leg raise, which is negative at this time. She has no pain with flexion or extension of the hip. She also has no pain elicited with passive internal or external rotation of the hip. Distal neurovascular status is intact. All other extremities were noted to have no injuries or deformities. RADIOGRAPHIC FINDINGS: Reviewed today, show evidence of degenerative changes at the right hip. There is some loss of joint space and some osteophytes. These were reviewed with Dr. Jenkins today. IMPRESSION: Patient with chronic radiculopathy with evidence for right hip degenerative changes on x-ray. PLAN: At this time, the patient does have findings consistent with degenerative joint disease of the right hip on x-ray today. I believe this could be related to some of her symptoms; however, she is completely pain free on exam today with rotation of her hip. She does report some leg pain, but this is not specifically isolated to the groin region. I believe that the majority of her symptoms are coming from her back. She does have an orthopedic surgeon, for which she sees in [place], [place]. Upon discharge, she will seek followup care from that orthopedic surgeon. Plan of care discussed with the patient today. She verbalized understanding. Job ID: [id number]
[2019-11-27] MEDS: HYDROcodone/Acetaminophen 10/325 mg Tablet PO PRN (11:40)
[2019-11-27] MEDS: Morphine 4 MG/ML VIAL SLOW IVP PRN (12:13)
[2019-11-27] MEDS: Lidocaine 5% Patch TD SCH (12:17)
[2019-11-27] MEDS ORDERED: methylPREDNISolone 4 mg Tablet PO SCH (21:00)
--- NOTE | 2019-11-28 00:01 | DIS ---
DATE OF ADMISSION: 11/20/2019 DATE OF DISCHARGE: 11/27/2019 PRIMARY CARE PHYSICIAN: JENSEN Coombs, in [place], [place]. REASON FOR ADMISSION: Right sciatica pain. DIAGNOSES AT DISCHARGE: 1. Lumbar radiculopathy. 2. Right hip pain with arthritis. 3. Back pain. 4. Hypertension. 5. Gastroesophageal reflux disease. 6. Acute renal failure resolved after fluids and holding diuretics and ARB. PROCEDURES PERFORMED: 1. X-ray of the right hip showing arthrosis and degenerative changes without acute fracture or dislocation. 2. Lumbar spine MRI showing degenerative disk changes of all levels with degrees of central canal stenosis and foraminal stenosis. The central canal stenosis is moderate in some areas and mild in others, but no severe stenosis or cord impingement. CONSULTATIONS: 1. Neurosurgery, Hermes Mcelroy PA-C for Duane White MD. 2. Pain Management, Krishan Bar MD. 3. Orthopedics, Charisma Donovan PA-C for Luis Romano MD. SUMMARY OF HOSPITAL COURSE: This is a 74-year-old female with a past history significant for chronic sciatica, as well as acid reflux. She presented to the emergency room with worsening of pain. She was seeing a paint process engineer outpatient, however, he retired. Saw a new patient doctor three months ago and got steroid injections and was doing fine. However, it worsened, did not improve with injections last month, and is being more immobile with decreased oral intake. The patient was seen in the hospital. She was given IV morphine and oral medications for pain. She was put on oral steroids as well. Neurosurgery was consulted and talked to her about a possible laminectomy, which she is still considering but not going to get at this point. Dr. Bar was consulted for pain management. He gave her some extra steroids and changed her pain medicine around and patient had some improvement in her symptoms. Orthopedics was consulted because her right hip seemed to be contributing to some of the pain. X-ray did show arthritis there. Orthopedics thought that was by some contribution and it was mostly the back that was causing the problem and recommended following up with her outpatient orthopedist. The patient had significant improvement in her pain during hospitalization. She was getting up and ambulating with physical therapy. However, she still had significant pain later each day after moving around and is being sent to inpatient rehabilitation. The patient did have some increased creatinine on her admission. This resolved with fluids and holding her ARB and hydrochlorothiazide combination pill. She was switched to amlodipine with good control of her blood pressure during the hospitalization. The patient did have some burning in her mid-epigastric region consistent with her chronic GERD. She has not been taking her PPI in the recent days and was not on her home medicine list. I am restarting her on Protonix currently. DISCHARGE MANAGEMENT: Discharged to [facility] inpatient rehabilitation. ACTIVITY: As tolerated. DIET: Healthy heart diet. THERAPY: Occupational and physical therapy. FOLLOWUP: Follow up with primary care physician after discharge from rehab and with her orthopedist as well. DISCHARGE MEDICATIONS: 1. Amlodipine 2.5 mg daily. 2. Aspirin 81 mg daily. 3. Gabapentin 600 mg 3 times a day. 4. Hydrocodone 10/325 one to two tablets every 6 hours as needed for pain. 5. Lactulose as needed for constipation. 6. Lidocaine patch applied transdermal daily for 12 hours. 7. Meloxicam 7.5 mg at night. 8. Methocarbamol 75 mg 3 times a day. 9. Continue Medrol Dosepak to complete course. 10. Metoprolol succinate 50 mg at night. 11. Morphine as needed for pain. 12. Protonix 40 mg daily. 13. MiraLAX 17 g daily. 14. Topiramate extended release 200 mg at night. TIME SPENT: Arranging the details of this discharge took 32 minutes. Job ID: [id number] MTDD
[2019-11-28] MEDS ORDERED: methylPREDNISolone 4 mg Tablet PO SCH (08:00)
[2019-11-29] MEDS ORDERED: methylPREDNISolone 4 mg Tablet PO SCH (08:00)
[2019-11-30] MEDS ORDERED: methylPREDNISolone 4 mg Tablet PO SCH (08:00)
[2019-12-01] MEDS ORDERED: methylPREDNISolone 4 mg Tablet PO SCH (08:00)
== END 2019-11-27 14:43 | DRG 552 ==
LOC: ERS 13:57 → OBSVTOIN 17:40 → T4-B 17:40
PROVIDERS: ADMIT Internal Medicine; ATTEND Internal Medicine
DX: M54.16 Radiculopathy, lumbar region (principal); N17.9 Acute kidney failure, unspecified; K21.9 Gastro-esophageal reflux disease without esophagitis; M54.41 Lumbago with sciatica, right side; I10 Essential (primary) hypertension; M48.061 Spinal stenosis, lumbar region without neurogenic claudication; M16.11 Unilateral primary osteoarthritis, right hip; Z79.1 Long term (current) use of non-steroidal anti-inflammatories (NSAID); Z79.891 Long term (current) use of opiate analgesic; Z79.899 Other long term (current) drug therapy; Z88.2 Allergy status to sulfonamides
CPT/HCPCS: 36415; 72148; 80048; 80053; 85025; 85027; 85652; 86140; 96372; J1644; J1885; J2270; J2930; J3010; J7509; Q0162